=== PATIENT | male | born 1980 | race Caucasian/White ===

== ENCOUNTER 2018-06-07 19:05 | Emergency (ER) | payer OTHER ==
[2018-06-07] MEDS ORDERED: Lidocaine 1% with EPINEPHrine 1:100,000 20 ML MDV INJECT ONE (19:12)
--- NOTE | 2018-06-07 19:14 | EDM.PDOC ---
ED HPI GENERAL MEDICAL PROBLEM - General Chief Complaint: Laceration Stated Complaint: CUT FINGERTIP ON RT HAND [id number] Time Seen by Provider: 06/07/18 19:12 Source of Information: Reports: Patient History Limitations: Reports: No Limitations - History of Present Illness INITIAL COMMENTS - FREE TEXT/NARRATIVE: cut off tip of finger Right Middle Finger-Middle Pain Score (Numeric/FACES): 4 - Related Data Allergies Allergy/AdvReac Type Severity Reaction Status Date / Time No Known Allergies Allergy Verified 06/07/18 19:16 Home Meds: Home Meds . [No Known Home Meds] 06/07/18 [History] Past Medical History - Past Health History Medical/Surgical History: Denies Medical/Surgical History HEENT History: Reports: None Cardiovascular History: Reports: None Respiratory History: Reports: None Gastrointestinal History: Reports: None Genitourinary History: Reports: None Musculoskeletal History: Reports: None Neurological History: Reports: None Psychiatric History: Reports: None Endocrine/Metabolic History: Reports: None Hematologic History: Reports: None Immunologic History: Reports: None Oncologic (Cancer) History: Reports: None Dermatologic History: Reports: None ED ROS GENERAL - Review of Systems Review Of Systems: ROS reveals no pertinent complaints other than HPI. ED EXAM, SKIN/RASH Exam: See Below Exam Limited By: No Limitations General Appearance: Alert, WD/WN, Mild Distress Ears: Hearing Grossly Normal Throat/Mouth: Normal Voice, No Airway Compromise Head: Atraumatic Neck: Non-Tender, Full Range of Motion Respiratory/Chest: No Respiratory Distress Cardiovascular: Regular Rate, Rhythm GI/Abdominal: Soft, Non-Tender Extremities: Other (right middle tip 1/4" cut off, NV wnl, normal ROM) Neurological: Alert, Normal Cognition, Normal Gait, No Motor/Sensory Deficits Psychiatric: Normal Affect, Normal Mood Skin: Warm, Dry, Normal Color Location, Skin: Upper Extremity, Right ED SKIN PROCEDURES - Laceration/Wound Repair Right Digit - 3rd (Middle) Lac/Wound length In cm: 0.5 (tip of right middle) Appearance: Subcutaneous, Clean, Other (elliptical avulsion) Distal NVT: Neuro & Vascular Intact, No Tendon Injury Anesthetic Type: Local Local Anesthesia - Lidocaine (Xylocaine): 1% with EPI Local Anesthetic Volume: Other (0.5ml) Skin Prep: Chlorhexidine (Hibiciens) Saline Irrigation (cc's): 20 Exploration/Debridement/Repair: Wound Explored, Explored to Base, No Foreign Material Found Closed with: Other (surgicel dressing) Sterile Dressing Applied: Provider Tetanus Status Addressed: Yes Complications: No Course - Vital Signs Last Recorded V/S: Last Vital Signs Temp 36.5 C 06/07/18 19:14 Pulse 70 06/07/18 19:14 Resp 18 06/07/18 19:14 BP 127/89 06/07/18 19:14 Pulse Ox 98 06/07/18 19:14 - Orders/Labs/Meds Meds: Medications Discontinued Medications Generic Name Dose Route Start Last Admin Trade Name Freq PRN Reason Stop Dose Admin Lidocaine/Epinephrine 20 ml 06/07/18 19:12 06/07/18 19:35 Xylocaine 1% With Epinephrine 1:100,000 INJECT 06/07/18 19:13 20 ml ONETIME ONE Administration Departure - Departure Time of Disposition: 19:50 Disposition: Home, Self-Care 01 Condition: Good Clinical Impression: Soft tissue avulsion - Discharge Information Instructions: Wound Care, Adult Referrals: PCP,None [Primary Care Provider] - Forms: ED Department Discharge Additional Instructions: 1) keep wound clean dry covered for 48 hours 2) change dressing on Sunday 3) recheck if there is any change or concern
[2018-06-07 19:16] VITALS: BP 127/89
== END 2018-06-07 19:51 | disposition home or self-care (01) ==
LOC: DL.ED 19:05
DX: S61.212A Laceration without foreign body of right middle finger without damage to nail, initial encounter (principal); W45.8XXA Other foreign body or object entering through skin, initial encounter
CPT/HCPCS: 99282

== ENCOUNTER 2020-03-21 14:52 | Emergency (ER) | payer OTHER ==
[2020-03-21 15:21] VITALS: BP 113/78; PULSE 102
[2020-03-21] MEDS ORDERED: predniSONE 20 MG Tab PO ONE (16:08)
[2020-03-21] MEDS ORDERED: Loratadine 10 MG Tab PO ONE (16:08)
[2020-03-21] MEDS ORDERED: Famotidine 20 MG Tab PO ONE (16:09)
--- NOTE | 2020-03-21 16:22 | EDM.PDOC ---
Scribed by Sandhya Arroyo 03/21/20 [id number] for Christiano Saleem MD ED HPI GENERAL MEDICAL PROBLEM - General Chief Complaint: Skin Complaint Stated Complaint: RASH, FEEL LIKE PINS JABBING INTO HANDS Time Seen by Provider: 03/21/20 16:00 Source of Information: Reports: Patient, RN, RN Notes Reviewed History Limitations: Reports: No Limitations - History of Present Illness INITIAL COMMENTS - FREE TEXT/NARRATIVE: Patient presents to ED with complaint of feeling of pins in left hand and itchiness that started on Sunday. Today the feeling is in both of hands. His blackburn ds are red. Pt has no idea why the rash only affects the hands, or what if anything he could be reacting to. Onset: Gradual Duration: Getting Worse Location: Reports: Upper Extremity, Left, Upper Extremity, Right Quality: Reports: Ache Severity: Moderate Improves with: Reports: None Worsens with: Reports: None Associated Symptoms: Reports: No Other Symptoms Bilateral Hand Pain Score (Numeric/FACES): 5 - Related Data Allergies Allergy/AdvReac Type Severity Reaction Status Date / Time No Known Allergies Allergy Verified 03/21/20 15:20 Home Meds: Home Meds . [No Known Home Meds] 06/07/18 [History] Past Medical History - Past Health History Medical/Surgical History: Denies Medical/Surgical History HEENT History: Reports: None Cardiovascular History: Reports: None Respiratory History: Reports: None Gastrointestinal History: Reports: None Genitourinary History: Reports: None Musculoskeletal History: Reports: None Neurological History: Reports: None Psychiatric History: Reports: None Endocrine/Metabolic History: Reports: None Hematologic History: Reports: None Immunologic History: Reports: None Oncologic (Cancer) History: Reports: None Dermatologic History: Reports: None - Infectious Disease History Infectious Disease History: Reports: None - Past Surgical History Musculoskeletal Surgical History: Reports: Other (See Below) Other Musculoskeletal Surgeries/Procedures:: right knee torn ACL,MCL, tendon and meniscus reconstruction Social & Family History - Family History Family Medical History: Noncontributory - Tobacco Use Tobacco Use Status *Q: Never Tobacco User Second Hand Smoke Exposure: No - Caffeine Use Caffeine Use: Reports: Soda - Recreational Drug Use Recreational Drug Use: No ED ROS GENERAL - Review of Systems Review Of Systems: Comprehensive ROS is negative, except as noted in HPI. ED EXAM, SKIN/RASH Exam: See Below Exam Limited By: No Limitations General Appearance: Alert, WD/WN, No Apparent Distress Nose: Normal Inspection Throat/Mouth: Normal Inspection Head: Atraumatic, Normocephalic Neck: Normal Inspection Respiratory/Chest: No Respiratory Distress Cardiovascular: Normal Peripheral Pulses Extremities: Normal Range of Motion, No Pedal Edema, Normal Capillary Refill. No: Joint Swelling, Arm Pain Neurological: Alert, Oriented Psychiatric: Normal Mood Skin: Warm, Dry, Intact, Rash Location, Skin: Palms Characteristics: Confluent, Patchy, Erythematous. No: Vesicular, Petechial Associated features: Tenderness, Inflammation, Rough. No: Warmth, Swelling, Induration, Scaling, Lymphangitis, Crusting, Weeping Course - Vital Signs Last Recorded V/S: Last Vital Signs Temp 98.4 F 03/21/20 15:21 Pulse 102 H 03/21/20 15:21 Resp 18 03/21/20 15:21 BP 113/78 03/21/20 15:21 Pulse Ox 96 03/21/20 15:21 - Orders/Labs/Meds Meds: Medications Discontinued Medications Generic Name Dose Route Start Last Admin Trade Name Estivenq PRN Reason Stop Dose Admin Famotidine 40 mg 03/21/20 16:09 Pepcid PO 03/21/20 16:10 ONETIME ONE Loratadine 10 mg 03/21/20 16:08 Claritin PO 03/21/20 16:09 ONETIME ONE Prednisone 60 mg 03/21/20 16:08 Prednisone PO 03/21/20 16:09 ONETIME ONE Departure - Departure Time of Disposition: 16:21 Disposition: Home, Self-Care 01 Condition: Good Clinical Impression: Contact dermatitis Qualifiers: Contact dermatitis type: unspecified Contact dermatitis trigger: unspecified trigger Qualified Code(s): L25.9 - Unspecified contact dermatitis, unspecified cause - Discharge Information *PRESCRIPTION DRUG MONITORING PROGRAM REVIEWED*: Not Applicable *COPY OF PRESCRIPTION DRUG MONITORING REPORT IN PATIENT JAK: Not Applicable Instructions: Contact Dermatitis Forms: ED Department Discharge Additional Instructions: Rx: Prednisone 20mg Rx: Triamcinolone Cream Rx: Zyrtec 10mg Follow up in clinic in 3 to 5 days for recheck. Sepsis Event Note (ED) - Evaluation Sepsis Screening Result: No Definite Risk - Focused Exam Vital Signs: Vital Signs Temp Pulse Resp BP Pulse Ox 11/08/20 15:21 98.4 F 102 H 18 113/78 96 I have read and agree with the documentation that has been completed regarding this visit. By signing this record, I attest that the documentation was completed in my physical presence and is an accurate record of the encounter.
== END 2020-03-21 16:30 | disposition home or self-care (01) ==
LOC: DL.ED 14:52
DX: L25.9 Unspecified contact dermatitis, unspecified cause (principal)
CPT/HCPCS: 99282; A9270; J7512

== ENCOUNTER 2020-12-24 02:14 | Emergency (ER) | payer SELFPAY ==
[2020-12-24] MEDS ORDERED: Acetaminophen/oxyCODONE 325-5 MG Tab PO ONE (02:15)
[2020-12-24] MEDS ORDERED: HYDROmorphone 0.5 MG/0.5 ML Syringe IVPUSH ONE ×2 (02:35→02:59)
[2020-12-24] MEDS ORDERED: Metoclopramide 10 MG/2 ML SDV IVPUSH ONE (02:37)
[2020-12-24 02:39] VITALS: PULSE 86
--- NOTE | 2020-12-24 02:48 | EDM.PDOC ---
ED HPI GENERAL MEDICAL PROBLEM - General Chief Complaint: Genitourinary Problem Stated Complaint: SEVERE STOMACH PAIN HAD Time Seen by Provider: 12/24/20 02:30 Source of Information: Reports: Patient History Limitations: Reports: No Limitations - History of Present Illness INITIAL COMMENTS - FREE TEXT/NARRATIVE: This 40 yo male patient reports to the ED with left lower quadrant and left side pain. The patient reports he had a lithotripsy done yesterday through [facility] in [place] by Dr. Nguyen. The patient was discharged with a script for pain medications sent to [facility]. Once the patient was discharged and got to the pharmacy, the patient found out his insurance would not cover the medications through [facility]. The patient attempted to get to another pharmacy, but was too late to transfer the prescription. The patient did take Ibuprofen (800 mg) last night and was doing well when he went to bed only to wake up to increased abdominal pain with nausea this morning at 0147. The patient reports he has continued to have pain to his left lower quadrant (consistent with the pain he was experiencing prior to yesterday's intervention). 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 [No Known Home Meds] 06/07/18 [History] Past Medical History - Past Health History Medical/Surgical History: Denies Medical/Surgical History HEENT History: Reports: None Cardiovascular History: Reports: None Respiratory History: Reports: None Gastrointestinal History: Reports: None Genitourinary History: Reports: Renal Calculus Musculoskeletal History: Reports: None Neurological History: Reports: None Psychiatric History: Reports: None Endocrine/Metabolic History: Reports: None Hematologic History: Reports: None Immunologic History: Reports: None Oncologic (Cancer) History: Reports: None Dermatologic History: Reports: None - Infectious Disease History Infectious Disease History: Reports: None - Past Surgical History Male Surgical History: Reports: Lithotripsy ([facility]) Other Male Surgeries/Procedures: Lithotripsy 12/2020. Musculoskeletal Surgical History: Reports: Other (See Below) Other Musculoskeletal Surgeries/Procedures:: right knee torn ACL,MCL, tendon and meniscus reconstruction Social & Family History - Family History Family Medical History: No Pertinent Family History - Tobacco Use Tobacco Use Status *Q: Never Tobacco User Second Hand Smoke Exposure: No - Caffeine Use Caffeine Use: Reports: Coffee, Soda - Recreational Drug Use Recreational Drug Use: No ED ROS GENERAL - Review of Systems Review Of Systems: Comprehensive ROS is negative, except as noted in HPI. ED EXAM, RENAL/ - Physical Exam Exam: See Below Exam Limited By: No Limitations General Appearance: Alert, WD/WN, Severe Distress Eye Exam: Bilateral Eye: EOMI, Normal Inspection, PERRL Ears: Normal External Exam, Normal Canal, Hearing Grossly Normal, Normal TMs Nose: Normal Inspection, Normal Mucosa, No Blood Throat/Mouth: Normal Inspection, Normal Lips, Normal Teeth, Normal Gums, Normal Oropharynx, Normal Voice, No Airway Compromise Head: Atraumatic, Normocephalic Neck: Normal Inspection, Supple, Non-Tender, Full Range of Motion Respiratory/Chest: No Respiratory Distress, Lungs Clear, Normal Breath Sounds, No Accessory Muscle Use, Chest Non-Tender Cardiovascular: Normal Peripheral Pulses, Regular Rate, Rhythm, No Edema, No Gallop, No JVD, No Murmur, No Rub GI/Abdominal: Normal Bowel Sounds, No Organomegaly, No Distention, No Abnormal Bruit, No Mass, Pelvis Stable, Tender (LLQ) (Male) Exam: Deferred Rectal (Males) Exam: Deferred Back Exam: CVA Tenderness (L) Extremities: Normal Inspection, Normal Range of Motion, Non-Tender, Normal Capillary Refill, No Pedal Edema Neurological: Alert, Oriented, CN II-XII Intact, Normal Cognition, Normal Gait, Normal Reflexes, No Motor/Sensory Deficits Psychiatric: Normal Affect, Normal Mood Skin Exam: Warm, Dry, Intact, Normal Color, No Rash Lymphatic: No Adenopathy Course - Vital Signs Last Recorded V/S: Last Vital Signs Temp 97.3 F 12/24/20 02:24 Pulse 86 12/24/20 02:24 Resp 18 12/24/20 02:24 BP 136/80 12/24/20 02:24 Pulse Ox 97 12/24/20 02:24 - Orders/Labs/Meds Meds: Medications Discontinued Medications Generic Name Dose Route Start Last Admin Trade Name Elaine PRN Reason Stop Dose Admin Hydromorphone HCl 0.5 mg 12/24/20 02:35 12/24/20 02:45 Hydromorphone 0.5 Mg/0.5 Ml Syringe IVPUSH 12/24/20 02:36 0.5 mg ONETIME ONE Administration Hydromorphone HCl 0.5 mg 12/24/20 02:59 12/24/20 03:07 Hydromorphone 0.5 Mg/0.5 Ml Syringe IVPUSH 12/24/20 03:00 0.5 mg ONETIME ONE Administration Metoclopramide HCl 10 mg 12/24/20 02:37 12/24/20 02:45 Metoclopramide 10 Mg/2 Ml Sdv IVPUSH 12/24/20 02:38 10 mg ONETIME ONE Administration - Re-Assessments/Exams Free Text/Narrative Re-Assessment/Exam: 12/24/20 02:51 The patient reports he continues to have "stinging", but his pain is "much better" after the pain medication. Departure - Departure Time of Disposition: 03:34 Disposition: Home, Self-Care 01 Condition: Fair Clinical Impression: Postoperative lower abdominal pain - Discharge Information *PRESCRIPTION DRUG MONITORING PROGRAM REVIEWED*: Not Applicable *COPY OF PRESCRIPTION DRUG MONITORING REPORT IN PATIENT JAK: Not Applicable Forms: ED Department Discharge Care Plan Goals: The patient was advised of the examination results during the visit. The patient was given IV Dilaudid and IV Reglan while in the ED. The patient was discharged with Percocet (5/325) #2 to take 1 by mouth every 4 hours as needed for pain. If the patient has any additional symptoms or concerns, the patient should either return to the emergency department or visit his primary care facility. Sepsis Event Note (ED) - Evaluation Sepsis Screening Result: No Definite Risk - Focused Exam Vital Signs: Vital Signs Temp Pulse Resp BP Pulse Ox 12/24/20 02:24 97.3 F 86 18 136/80 97
[2020-12-24 02:51] VITALS: BP 136/80
[2020-12-24] MEDS ORDERED: Acetaminophen/oxyCODONE 325-5 MG Tab ONE (03:35)
== END 2020-12-24 03:42 | disposition home or self-care (01) ==
LOC: DL.ED 02:14
DX: G89.18 Other acute postprocedural pain (principal); R10.32 Left lower quadrant pain; Z87.442 Personal history of urinary calculi
CPT/HCPCS: 96374; 96375; 99283-25; 99284; A9270-GY; J1170; J2765

== ENCOUNTER 2020-12-24 07:25 | Emergency (ER) | payer SELFPAY ==
[2020-12-24] MEDS ORDERED: HYDROmorphone 0.5 MG/0.5 ML Syringe IVPUSH ONE (08:06)
[2020-12-24] MEDS ORDERED: Sodium Chloride 0.9% 1,000 ML IV ONE ×2 (08:12→09:14)
[2020-12-24] MEDS ORDERED: Ondansetron 4 MG/2 ML SDV IVPUSH ONE (08:12)
--- NOTE | 2020-12-24 08:13 | EDM.PDOC ---
ED HPI GENERAL MEDICAL PROBLEM - General Chief Complaint: Abdominal Pain Stated Complaint: WAS HERE 1 HR AGO / KIDNEY STONE Time Seen by Provider: 12/24/20 08:00 Source of Information: Reports: Patient, RN, RN Notes Reviewed History Limitations: Reports: No Limitations - History of Present Illness INITIAL COMMENTS - FREE TEXT/NARRATIVE: Kwesi is a 40 y/o male who presents to the ED via personal vehicle with for complaints of suprapubic tenderness. He is POD 1 s/p lithotripsy via Dr. Nguyen, urologist at [facility], and has been experiencing pain since discharge yesterday afternoon. The patient experiencing difficulty obtaining his prescription medications and was evaluated in this facility approximately 6 hours ago for similar complaints. The patient states his pain has moved from his flank and upper abdomen into his suprapubic region. He notes he experienced relief following the medications he received in the ER, but woke two hours later with significant pain. He feels the Percocet he was sent home with is not providing adequate relief. He denies fever, shaking chills, palpitations, inability to fully void, or diarrhea. He does attest to nausea, vomiting, and hematuria. He has not been in contact with his physician's office. Lower Bladder Pain Score (Numeric/FACES): 7 - Related Data Allergies Allergy/AdvReac Type Severity Reaction Status Date / Time No Known Allergies Allergy Verified 12/24/20 02:30 Home Meds: Home Meds . [No Known Home Meds] 06/07/18 [History] Past Medical History - Past Health History Medical/Surgical History: Denies Medical/Surgical History HEENT History: Reports: None Cardiovascular History: Reports: None Respiratory History: Reports: None Gastrointestinal History: Reports: None Genitourinary History: Reports: Renal Calculus Musculoskeletal History: Reports: None Neurological History: Reports: None Psychiatric History: Reports: None Endocrine/Metabolic History: Reports: None Hematologic History: Reports: None Immunologic History: Reports: None Oncologic (Cancer) History: Reports: None Dermatologic History: Reports: None - Infectious Disease History Infectious Disease History: Reports: None - Past Surgical History Male Surgical History: Reports: Lithotripsy ([facility]) Other Male Surgeries/Procedures: Lithotripsy 12/2020. Musculoskeletal Surgical History: Reports: Other (See Below) Other Musculoskeletal Surgeries/Procedures:: right knee torn ACL,MCL, tendon and meniscus reconstruction Social & Family History - Family History Family Medical History: No Pertinent Family History - Tobacco Use Tobacco Use Status *Q: Never Tobacco User - Caffeine Use Caffeine Use: Reports: None - Recreational Drug Use Recreational Drug Use: No ED ROS GENERAL - Review of Systems Review Of Systems: Comprehensive ROS is negative, except as noted in HPI. ED EXAM, RENAL/ - Physical Exam Exam: See Below Exam Limited By: No Limitations General Appearance: Moderate Distress (Left suprapubic pain) Eye Exam: Bilateral Eye: EOMI, Normal Inspection, PERRL (3mm) Ears: Normal External Exam, Hearing Grossly Normal Nose: Normal Inspection, Normal Mucosa Throat/Mouth: Normal Voice, No Airway Compromise. No: Normal Oropharynx (Dry mucous membranes) Head: Atraumatic, Normocephalic Neck: Normal Inspection, Supple, Non-Tender, Full Range of Motion. No: Lymphadenopathy (L), Lymphadenopathy (R) Respiratory/Chest: No Respiratory Distress, Lungs Clear, Normal Breath Sounds, No Accessory Muscle Use, Chest Non-Tender Cardiovascular: Normal Peripheral Pulses, Regular Rate, Rhythm, No Gallop, No JVD, No Murmur, No Rub GI/Abdominal: Soft, No Distention, No Abnormal Bruit, No Mass, Pelvis Stable, Guarding, Tender (To left suprapubic region ), Abnormal Bowel Sounds (Hypoactive bowel sounds). No: Rigid, Rebound (Male) Exam: Deferred Rectal (Males) Exam: Deferred Extremities: Normal Range of Motion, Non-Tender, No Pedal Edema, Normal Capillary Refill Neurological: Alert, Oriented, CN II-XII Intact, Normal Cognition, Normal Gait, No Motor/Sensory Deficits Psychiatric: Anxious Skin Exam: Warm, Intact, Normal Color, No Rash, Diaphoretic. No: Cyanosis, Jaundice, Mottled, Pallor Course - Vital Signs Last Recorded V/S: Last Vital Signs Temp 97.9 F 12/24/20 11:07 Pulse 77 12/24/20 11:07 Resp 16 12/24/20 11:07 BP 135/66 12/24/20 11:07 Pulse Ox 99 12/24/20 11:07 - Orders/Labs/Meds Meds: Medications Discontinued Medications Generic Name Dose Route Start Last Admin Trade Name Freq PRN Reason Stop Dose Admin Hydromorphone HCl 0.5 mg 12/24/20 08:06 12/24/20 08:24 Hydromorphone 0.5 Mg/0.5 Ml Syringe IVPUSH 12/24/20 08:07 0.5 mg ONETIME ONE Administration Sodium Chloride 1,000 mls @ 999 mls/hr 12/24/20 08:12 12/24/20 08:24 Normal Saline IV 12/24/20 09:12 999 mls/hr .BOLUS ONE Administration Sodium Chloride 1,000 mls @ 999 mls/hr 12/24/20 09:14 12/24/20 09:17 Normal Saline IV 12/24/20 10:14 999 mls/hr .BOLUS ONE Administration Ketorolac Tromethamine 30 mg 12/24/20 09:10 12/24/20 09:13 Ketorolac 30 Mg/Ml Sdv IVPUSH 12/24/20 09:11 30 mg ONETIME ONE Administration Ondansetron HCl 4 mg 12/24/20 08:12 12/24/20 08:24 Ondansetron 4 Mg/2 Ml Sdv IVPUSH 12/24/20 08:13 4 mg ONETIME ONE Administration Promethazine HCl 25 mg 12/24/20 09:06 12/24/20 09:11 Promethazine 25 Mg/Ml Sdv IM 12/24/20 09:07 25 mg ONETIME ONE Administration Tamsulosin HCl 0.4 mg 12/24/20 09:15 12/24/20 09:20 Tamsulosin 0.4 Mg Cap.Er PO 12/24/20 09:16 0.4 mg ONETIME ONE Administration - Re-Assessments/Exams Free Text/Narrative Re-Assessment/Exam: 12/24/20 Bladder scanned for 0 NS 1L bolus initiated. Dilaudid 0.5mg IV administered. Zofran 4mg IVP administered. Patient verbalized moderate improvement in pain. Will administer additional 1L NS bolus. Flomax 0.4mg PO given. ED staff in contact with Dr. Nguyen, prescriptions now sent to [facility]. Patient nauseas with return of pain. Phenergan 25mg IM administered. Toradol 30mg IVP administered. Patient improved following medication administration. Discussed ongoing management of renal calculi following lithotripsy at home. Patient to turkey picker prescriptions. Red flag signs and symptoms which would warrant reevaluation discussed. Patient verbalized understanding and agreement with the plan of care. Departure - Departure Time of Disposition: 10:34 Disposition: Home, Self-Care 01 Condition: Fair Clinical Impression: Other acute postprocedural pain, History of renal stone, History of lithotripsy - Discharge Information *PRESCRIPTION DRUG MONITORING PROGRAM REVIEWED*: Not Applicable *COPY OF PRESCRIPTION DRUG MONITORING REPORT IN PATIENT JAK: Not Applicable Instructions: Acute Pain, Adult Forms: ED Department Discharge Additional Instructions: 1.) Obtain your prescriptions from the [facility], as prescribed by Dr. Nguyen. He has e-prescribed Percocet, Zofran ODT, and Pyridium 2.) Continue to drink small, frequent sips of water to stay hydrated and help flush out bladder and kidneys. 3.) In addition to your prescribed medication you may take ibuprofen (Advil, Motrin) 600mg every six hours, as pain persists. 4.) Follow up with your urologist, or return to the emergency department, with any worsening symptoms, fever, shaking chills, or inability to urinate. Sepsis Event Note (ED) - Focused Exam Vital Signs: Vital Signs Temp Pulse Resp BP Pulse Ox 12/24/20 11:07 97.9 F 77 16 135/66 99 12/24/20 10:13 98.1 F 72 14 142/60 H 99 12/24/20 07:41 98.1 F 84 16 161/103 H 99
[2020-12-24] MEDS ORDERED: Promethazine 25 MG/ML SDV IM ONE (09:06)
[2020-12-24] MEDS ORDERED: Ketorolac 30 MG/ML SDV IVPUSH ONE (09:10)
[2020-12-24] MEDS ORDERED: Tamsulosin 0.4 MG Cap.ER PO ONE (09:15)
[2020-12-24 11:09] VITALS: BP 135/66; PULSE 77
== END 2020-12-24 11:09 | disposition home or self-care (01) ==
LOC: DL.ED 07:25
DX: G89.18 Other acute postprocedural pain (principal); R10.30 Lower abdominal pain, unspecified; Z87.442 Personal history of urinary calculi
CPT/HCPCS: 96372; 96374; 96375; 99284-25; A9270-GY; J1170; J1885; J2405; J2550; J7030

== ENCOUNTER 2021-09-24 19:18 | Emergency (ER) | payer OTHER ==
[2021-09-24 19:32] VITALS: BP 128/94; PULSE 78
[2021-09-24 20:06] LABS: ANION GAP 11.9 mEq/L (7-13); CHLORIDE,CL 104 mmol/L (98-107); SODIUM,NA 138 mmol/L (136-145)
== END 2021-09-24 20:50 | disposition home or self-care (01) ==
LOC: DL.ED 19:18
DX: R07.89 Other chest pain (principal); M79.652 Pain in left thigh
CPT/HCPCS: 36415; 71046; 80053; 84484; 85025; 85379; 93005; 93010; 99284; 99285-25

== ENCOUNTER 2021-10-12 11:31 | Emergency (ER) | payer OTHER ==
[2021-10-12 11:57] VITALS: BP 117/92; PULSE 83
[2021-10-12 13:06] LABS: ANION GAP 11.1 mEq/L (7-13); CHLORIDE,CL 104 mmol/L (98-107); SODIUM,NA 138 mmol/L (136-145)
[2021-10-12] MEDS ORDERED: Omeprazole 20 MG Cap.CR PO ONE (13:30)
== END 2021-10-12 13:50 | disposition home or self-care (01) ==
LOC: DL.ED 11:31
DX: K21.9 Gastro-esophageal reflux disease without esophagitis (principal)
CPT/HCPCS: 36415; 80053; 83605; 84484; 85025; 85379; 85610; 93005; 99285-25; A9270-GY